=== PATIENT | female | born 1985 | race Asian ===

== ENCOUNTER 2017-03-27 11:18 | Outpatient (CLI) | payer MEDICAID, OTHER ==
[~2017-03-27] VITALS: Ht 152.4 cm; Wt 63.1 kg
[2017-03-27 11:52] LABS: ADD SCAN DIFF NO
[2017-03-27 12:00] LABS: BASOPHILS % 0.1 % (0.0-2.0); EOSINOPHILS # 0.1 10^3/ul (0.0-0.5); EOSINOPHILS % 0.6 % (0.0-7.0); HEMATOCRIT 38.9 % (37.0-47.0); HEMOGLOBIN 13.3 g/dl (12.0-16.0); LYMPHOCYTES # 1.3 10^3/ul (0.8-2.9); LYMPHOCYTES % 15.8 % (15.0-51.0); MEAN CORPUSCULAR HEMOGLOBIN 31.1 pg (29.0-33.0); MEAN CORPUSCULAR HGB CONC 34.2 g/dl (32.0-37.0); MEAN CORPUSCULAR VOLUME 91.1 fl (82.0-101.0); MEAN PLATELET VOLUME 11.6 fl (7.4-10.4); MONOCYTE # 0.7 10^3/ul (0.3-0.9); MONOCYTES % 8.8 % (0.0-11.0); NEUTROPHIL # 6.2 10^3/ul (1.6-7.5); NEUTROPHILS % 74.2 % (39.0-77.0); PLATELET COUNT 151 10^3/UL (140-415); RED BLOOD COUNT 4.27 10^6/ul (4.20-5.40); RED CELL DISTRIBUTION WIDTH 12.7 % (11.5-14.5); WHITE BLOOD COUNT 8.4 10^3/ul (4.8-10.8)
[2017-03-27 12:06] LABS: ADD UMIC YES; UR ASCORBIC ACID NEGATIVE (NEGATIVE); UR BILIRUBIN (Dip) NEGATIVE (NEGATIVE); UR BLOOD (Dip) 1+ mg/dL (NEGATIVE); UR CLARITY CLEAR (CLEAR); UR COLOR YELLOW (YELLOW); UR GLUCOSE (Dip) NEGATIVE (NEGATIVE); UR KETONES (Dip) NEGATIVE (NEGATIVE); UR LEUKOCYTE ESTERASE (Dip) 2+ Leu/ul (NEGATIVE); UR MUCUS FEW /HPF (NONE SEEN); UR NITRITE (Dip) NEGATIVE (NEGATIVE); UR RBC 11 /HPF (0-5); UR SPECIFIC GRAVITY (Dip) 1.012 (1.003-1.030); UR TOTAL PROTEIN (Dip) NEGATIVE (NEGATIVE); UR UROBILINOGEN (Dip) NEGATIVE (NEGATIVE)
[2017-03-27 12:09] LABS: INR 0.86; PROTIME 11.7 Sec (12.2-14.2); PT RATIO 0.9
[2017-03-27 12:11] LABS: ALBUMIN 3.3 g/dl (3.3-4.9); ALBUMIN/GLOBULIN RATIO 1.03; BILIRUBIN,INDIRECT 0.3 mg/dl (0-1.1); BILIRUBIN,TOTAL 0.3 mg/dl (0.2-1.3); CALCIUM 9.3 mg/dl (8.4-10.2); CREATININE 0.59 mg/dl (0.44-1.00); POTASSIUM 3.6 mmol/L (3.5-5.1); TOTAL PROTEIN 6.5 g/dl (6.1-8.1); URIC ACID 5.1 mg/dl (3.1-7.9)
[2017-03-27 12:35] VITALS: BP 139/87; PULSE 51; RESP 24; Ht 152.4 cm; Wt 63.1 kg
[2017-03-27 12:36] LABS: PARTIAL THROMBOPLASTIN TIME 29.3 Sec (25.0-35.0)
--- NOTE | 2017-03-27 12:41 | RADRPT ---
PROCEDURE: US OB biophysical profile. CLINICAL INDICATION: evaluation, hypertension TECHNIQUE: Multiple sonographic images of the pelvis were obtained. The images were reviewed on a PACS workstation. COMPARISON: No prior studies are available for comparison. FINDINGS: There is a single viable intrauterine gestation. Cardiac activity is present with 115 beats per min kenaitze. There is a vertex presentation. The placenta is posterior. There is no evidence of placental abruption. There is a normal amount of amniotic fluid with an DIYA = 11.4 cm. Biophysical profile: movement 2/2 tone 2/2. breathing 2/2 DIYA 2/2 Total 04/17 RPTAT: AA . IMPRESSION: Normal biophysical profile. Physician Bhupinder Date Time Electronically viewed and signed by Physician Bhupinder on 03/27/2017 12:41 /
[2017-03-27] MEDS ORDERED: CALC600T11 PO (14:34)
[2017-03-27] MEDS ORDERED: FOLI0.4T2 PO (14:34)
[2017-03-27] MEDS ORDERED: PRENAT PO (14:34)
--- NOTE | 2017-03-27 16:03 | TRIAGE ---
OB Triage Datetime Report Generated by CPN: 03/27/2017 16:03 Datetime: 03/27/2017 14:27 Labor Evaluation Frequency: 3-7 Monitor Mode: External Duration (sec)2399: 50-120 Quality: Mild Pattern: Normal: <= 5 Contractions in 10 Minutes Resting Tone [place]: Relaxed Heart Rate FHR Baseline Rate: 125 Monitor Mode: External US Variability: Moderate 6-25 bpm Accelerations: 15X15 Decelerations: None Category: Category I Vaginal Exam Dilatation (cms): 0.0 Effacement (%): 0 Station: -4 Exam By: dr. delshad Cervix, Consistency: Moderate Datetime: 03/27/2017 13:37 Labor Evaluation Frequency: 3-4 Monitor Mode: External Duration (sec)2399: 50-80 Quality: Strong Pattern: Normal: <= 5 Contractions in 10 Minutes Resting Tone [place]: Relaxed Heart Rate FHR Baseline Rate: 130 Monitor Mode: External US Variability: Moderate 6-25 bpm Accelerations: 15X15 Decelerations: None Category: Category I Datetime: 03/27/2017 12:26 Labor Evaluation Frequency: irreg Monitor Mode: External Duration (sec)2399: 50-70 Quality: Mild Pattern: Normal: <= 5 Contractions in 10 Minutes Resting Tone [place]: Relaxed Heart Rate FHR Baseline Rate: 135 Monitor Mode: External US Variability: Moderate 6-25 bpm Accelerations: 15X15 Decelerations: None Category: Category I Datetime: 03/27/2017 11:40 Labor Evaluation Frequency: 3-7 Monitor Mode: External Duration (sec)2399: 50-90 Quality: Moderate Pattern: Normal: <= 5 Contractions in 10 Minutes Resting Tone [place]: Relaxed Heart Rate FHR Baseline Rate: 135 Monitor Mode: External US Variability: Moderate 6-25 bpm Accelerations: 15X15 Decelerations: None Category: Category I Datetime: 03/27/2017 11:33 Time of Arrival: 03/27/2017 11:06 EGA: 37.4 Arrived By: Ambulatory Arrived From: Home Chief Complaint: R/O PIH CAME WITH ORDERS NST /BPP Movement: Present Contractions: Denies/Absent Rupture of Membranes: Denies Vaginal Bleeding: None Vaginal Discharge: Denies Recent Sexual Intercouse: Denies Abdominal Trauma: Not Applicable Time Provider Notified: 03/27/2017 12:12 Provider Notified: dr. pineda Initial Plan: NST BPP, PIH PANEL Datetime: 03/27/2017 11:30 Assessment Type: Triage Maternal Assessment Level of Consciousness: Fully Conscious DTR's/Clonus: DTRs 2+; No Clonus Headache: Denies Blurred Vision: No Respiratory Effort: Unlabored; Regular Rhythm; Equal Expansion Breath Sounds, Left: Clear and Equal Breath Sounds, Right: Clear and Equal Nausea/Vomiting: Denies RUQ Epigastric Pain: Denies Lower Extremities Edema: Bilateral Lower Extremities Degree: Pitting Upper Extremities Edema: None Degree: None Facial Edema: None Fall Risk Assessment History of Falling: (0) No Secondary Diagnosis: (0) No Ambulatory Aid: (0) Bedrest/Nurse Assist IV Therapy: (0) No Gait: (0) Normal/Bedrest/Immobile Mental Status: (0) Oriented to Own Ability Fall Score: 0 Fall Risk Score Definition: No Risk: No action required Datetime: 03/27/2017 11:15 Stage of : OB Triage Assessment Type: Triage Maternal Assessment Level of Consciousness: Fully Conscious DTR's/Clonus: DTRs 2+; No Clonus Headache: Denies Blurred Vision: No Respiratory Effort: Unlabored; Regular Rhythm; Equal Expansion Breath Sounds, Left: Clear and Equal Breath Sounds, Right: Clear and Equal Nausea/Vomiting: Denies RUQ Epigastric Pain: Denies Lower Extremities Edema: None Degree: None Upper Extremities Edema: None Degree: None Facial Edema: None Temperature Route: Axillary Fall Risk Assessment History of Falling: (0) No Secondary Diagnosis: (0) No Ambulatory Aid: (0) Bedrest/Nurse Assist IV Therapy: (0) No Gait: (0) Normal/Bedrest/Immobile Mental Status: (0) Oriented to Own Ability Fall Score: 0 Fall Risk Score Definition: No Risk: No action required Pain Assessment Pain Scale: 0 Pain Presence: None/Denies Pain Type: N/A
== END 2017-03-27 14:30 | disposition home or self-care (01) ==
LOC: OBT 11:18 → L-D 11:19 → OBT 14:30
PROVIDERS: ATTEND Obstetrics & Gynecology
DX: O16.3 Unspecified maternal hypertension, third trimester (principal); Z3A.37 37 weeks gestation of pregnancy
CPT/HCPCS: 76818; 80053; 81001; 84560; 85025; 85384; 85610; 85730; Z7500; G0463

== ENCOUNTER 2017-04-18 14:45 | Inpatient (IN) | payer OTHER ==
[~2017-04-18] VITALS: Ht 152.4 cm; Wt 64.3 kg
[~2017-04-18 14:45] MED LIST: CALC600T11 PO; FOLI0.4T2 PO; PRENAT PO
[2017-04-18] MEDS ORDERED: FER325 PO (15:18)
[2017-04-18 15:19] VITALS: BP 129/71; PULSE 61; RESP 18; Ht 152.4 cm; Wt 64.3 kg
--- NOTE | 2017-04-18 16:14 | RADRPT ---
PROCEDURE: US OB. CLINICAL INDICATION: Post dates TECHNIQUE: Multiple sonographic images of the pelvis were obtained. Transabdominal imaging only w as performed. The images were reviewed on a PACS workstation. COMPARISON: No prior studies are available for comparison. FINDINGS: Single intrauterine gestation. Cephalic presentation. heart rate is 156 bpm. Measurements were made in order to determine age. The results are as follows: BPD = 9.46 cm HC = 32.60 cm AC = 35.10 cm FL = 7.31 cm Gestational age is 38 weeks 0 days and SONYA is 05/02/2017 by ultrasound criteria. EFW = 3473 g +/- 521 g (26 %). The placenta is fundal. There is no evidence for an abruption or placenta previa. IMPRESSION: 1. Single live intrauterine gestation of approximately 38 weeks 0 days by ultrasound criteria. RPTAT: EE .Umberto Haskins MD, MD Date Time Electronically viewed and signed by .Umberto Haskins MD, MD on 04/18/2017 16:14 .R/
--- NOTE | 2017-04-18 16:16 | RADRPT ---
PROCEDURE: OB ultrasound for biophysical profile CLINICAL INDICATION: Post dates. Biophysical profile. . TECHNIQUE: Multiple sonographic images of the pelvis were obtained. Transabdominal view of the gr avid uterus are available for review. The images were reviewed on a PACS workstation. COMPARISON: None FINDINGS: breathing movement = 2/2 tone = 2/2 motion = 2/2 DIYA = 2/2 Single intrauterine gestation is identified in cephalic position. heart rate is 161 bpm. Plac enta is fundal without evidence for abruption or previa. DIYA measures 3.2 cm, below normal limits. Maximum vertical pocket of fluid measures 2.3 cm. IMPRESSION: 1. Single live intrauterine gestation. 2. Biophysical profile = 04/17. 3. Oligohydramnios is noted - DIYA is 3.2 cm. Maximum vertical pocket of fluid measures 2.3 cm. RPTAT: EE .Umberto Haskins MD, MD Date Time Electronically viewed and signed by .Umberto Haskins MD, on 04/18/2017 16:16 .R/
--- NOTE | 2017-04-18 16:44 | TRIAGE ---
OB Triage Datetime Report Generated by CPN: 04/18/2017 16:44 Datetime: 04/18/2017 15:13 Assessment Type: Triage Maternal Assessment Level of Consciousness: Fully Conscious DTR's/Clonus: DTRs 2+; No Clonus Headache: Denies Blurred Vision: No Respiratory Effort: Unlabored; Regular Rhythm; Equal Expansion Breath Sounds, Left: Clear and Equal Breath Sounds, Right: Clear and Equal Nausea/Vomiting: Denies RUQ Epigastric Pain: Denies Lower Extremities Edema: None Degree: None Upper Extremities Edema: None Degree: None Facial Edema: None Fall Risk Assessment History of Falling: (0) No Secondary Diagnosis: (0) No Ambulatory Aid: (0) Bedrest/Nurse Assist IV Therapy: (0) No Gait: (0) Normal/Bedrest/Immobile Mental Status: (0) Oriented to Own Ability Fall Score: 0 Fall Risk Score Definition: No Risk: No action required Datetime: 04/18/2017 15:12 Time of Arrival: 04/18/2017 14:37 EGA: 41.0 Arrived By: Ambulatory Arrived From: Office Chief Complaint: PT HERE FOR NST/BPP/EFW FOR POST DATES Movement: Present Contractions: Denies/Absent Rupture of Membranes: Denies Vaginal Bleeding: None Vaginal Discharge: Denies Recent Sexual Intercouse: Denies Abdominal Trauma: Not Applicable Patient Complaints: None Time Provider Notified: 04/18/2017 16:30 Provider Notified: NIELS Initial Plan: NST/BPP/EFW Datetime: 04/18/2017 15:01 Labor Evaluation Monitor Mode: External Heart Rate Monitor Mode: External US Datetime: 03/27/2017 11:33 EGA: 37.6 Datetime: 03/27/2017 11:30 Fall Score: 0 Fall Risk Score Definition: No Risk: No action required Datetime: 03/27/2017 11:15 Fall Score: 0 Fall Risk Score Definition: No Risk: No action required
[2017-04-18] MEDS ORDERED: LIDOCAINE 1% (MPF) 30 ML INJ INJ PRN (17:00)
[2017-04-18] MEDS ORDERED: OXYTOCIN 30 UNITS/LR 500 ML IV PRN (17:00)
[2017-04-18] MEDS ORDERED: CARBOPROST 250 MCG INJ IM PRN (17:00)
[2017-04-18] MEDS ORDERED: MISOPROSTOL 200 MCG TAB PR PRN (17:00)
[2017-04-18] MEDS ORDERED: METHYLERGONOVINE 0.2 MG INJ IM PRN (17:00)
[2017-04-18] MEDS ORDERED: LACTATED RINGER'S 1,000 ML IV PRN (17:00)
[2017-04-18] MEDS: LACTATED RINGER'S 1,000 ML IV SCH ×2 (17:25→22:57)
[2017-04-18] MEDS ORDERED: IBUPROFEN 600 MG TAB PO PRN (17:30)
[2017-04-18] MEDS ORDERED: MINERAL OIL LIGHT 10 ML VIAL TOP ONE (17:30)
[2017-04-18] MEDS ORDERED: DINOPROSTONE 10 MG VAG SUPP VAG ONE (17:30)
[2017-04-18 17:45] LABS: BASOPHILS % 0.1 % (0.0-2.0); EOSINOPHILS # 0.1 10^3/ul (0.0-0.5); EOSINOPHILS % 0.8 % (0.0-7.0); HEMATOCRIT 40.2 % (37.0-47.0); HEMOGLOBIN 13.6 g/dl (12.0-16.0); LYMPHOCYTES # 1.8 10^3/ul (0.8-2.9); LYMPHOCYTES % 22.3 % (15.0-51.0); MEAN CORPUSCULAR HEMOGLOBIN 30.4 pg (29.0-33.0); MEAN CORPUSCULAR HGB CONC 33.8 g/dl (32.0-37.0); MEAN CORPUSCULAR VOLUME 89.9 fl (82.0-101.0); MONOCYTE # 0.8 10^3/ul (0.3-0.9); MONOCYTES % 10.2 % (0.0-11.0); NEUTROPHIL # 5.2 10^3/ul (1.6-7.5); NEUTROPHILS % 66.2 % (39.0-77.0); PLATELET COUNT 149 10^3/UL (140-415); RED BLOOD COUNT 4.47 10^6/ul (4.20-5.40); RED CELL DISTRIBUTION WIDTH 12.9 % (11.5-14.5); WHITE BLOOD COUNT 7.9 10^3/ul (4.8-10.8)
[2017-04-18 18:06] LABS: INR 0.86; PROTIME 11.7 Sec (12.2-14.2); PT RATIO 0.9
[2017-04-18 18:07] LABS: PARTIAL THROMBOPLASTIN TIME 28.5 Sec (25.0-35.0)
[2017-04-18 18:20] LABS: ALBUMIN/GLOBULIN RATIO 1.09
[2017-04-18 18:37] LABS: ADD UMIC YES; UR ASCORBIC ACID NEGATIVE (NEGATIVE); UR BILIRUBIN (Dip) NEGATIVE (NEGATIVE); UR BLOOD (Dip) 3+ mg/dL (NEGATIVE); UR CLARITY CLEAR (CLEAR); UR COLOR YELLOW (YELLOW); UR GLUCOSE (Dip) NEGATIVE (NEGATIVE); UR KETONES (Dip) NEGATIVE (NEGATIVE); UR LEUKOCYTE ESTERASE (Dip) 2+ Leu/ul (NEGATIVE); UR NITRITE (Dip) NEGATIVE (NEGATIVE); UR RBC 2 /HPF (0-5); UR SPECIFIC GRAVITY (Dip) 1.006 (1.003-1.030); UR SQUAMOUS EPITHELIAL CELL FEW /HPF (FEW); UR TOTAL PROTEIN (Dip) NEGATIVE (NEGATIVE); UR UROBILINOGEN (Dip) NEGATIVE (NEGATIVE)
[2017-04-18 18:40] LABS: ALBUMIN 3.4 g/dl (3.3-4.9); BILIRUBIN,INDIRECT 0.1 mg/dl (0-1.1); BILIRUBIN,TOTAL 0.1 mg/dl (0.2-1.3); TOTAL PROTEIN 6.5 g/dl (6.1-8.1); URIC ACID 6.9 mg/dl (3.1-7.9)
[2017-04-18 18:43] LABS: CREATININE 0.68 mg/dl (0.44-1.00); POTASSIUM 4.1 mmol/L (3.5-5.1)
[2017-04-18 18:44] LABS: ALBUMIN 3.4 g/dl (3.3-4.9); BILIRUBIN,INDIRECT 0.1 mg/dl (0-1.1); BILIRUBIN,TOTAL 0.1 mg/dl (0.2-1.3); TOTAL PROTEIN 6.5 g/dl (6.1-8.1)
--- NOTE | 2017-04-19 00:42 | HP ---
Date/Time of Note Date/Time of Note DATE: 04/19/17 TIME: 00:37 OB - History Hx of Present Free Text/Dictation 32years old with IUP at 41 weeks, post date and oligohydramnios and care with Dr. brito was started induction by Dr. Singre. Her course was non complicated. DIYA: 3.1 cm : 1 Para: 0 Spontaneous : 0 Therapeutic : 0 Care: Good Care Medical Complications: None Other Concerns: Post date, olighydramnios. BPP: 02/15 Past Family/Social History * Past Medical, Surgical, Family and Obstetric Histories reviewed from chart. OB Admission Exam Vital Signs Vital Signs Vital Signs Date Time Temp Pulse Resp B/P Pulse Ox O2 Delivery O2 Flow Rate FiO2 04/18/17 15:19 98.3 61 18 129/71 94 Room Air Physical Exam HEENT: WNL Heart: Rhythm Normal Lungs: Clear Abdomen: WNL Extremities: Normal Cervical Dilatation: None Effacement: 0% Station: -2 Membranes: Intact Heart Rate: 120's Accelerations: Accelerations Present Decelerations: No Decelerations Varibility: Moderate Contractions on Admission: >10 Minutes Apart Intensity: Mild Last 72 hours Lab Results CBC & BMP 04/18/17 17:20 Liver Function Test 04/18/17 17:20 Alanine Aminotransferase (ALT/SGPT) 28 Albumin 3.4 Alkaline Phosphatase 330 H Aspartate Amino Transf (AST/SGOT) 23 Direct Bilirubin 0.00 Total Protein 6.5 OB Assessment/Plan Other Assessment: IUP at 41 weeks Post date Oligohydramnios Non favourable cervix Started on cervidil FHT: cat 1 remove cervidil after 12 hours Re evaluate the cervix, if favourable start pitocin Anticipate ROS MALDONADO MD Apr 19, 2017 00:41
[2017-04-19] MEDS ORDERED: OXYTOCIN 30 UNITS/LR 500 ML IV SCH ×2 (01:30→07:00)
[2017-04-19] MEDS: LACTATED RINGER'S 1,000 ML IV SCH ×3 (02:06→22:55)
[2017-04-19] MEDS ORDERED: BUTORPHANOL 2 MG INJ ONE (05:00)
[2017-04-19] MEDS ORDERED: BUTORPHANOL 2 MG INJ IV PRN (05:00)
[2017-04-19] MEDS ORDERED: ONDANSETRON 4 MG INJ IV PRN ×2 (06:00→10:30)
[2017-04-19] MEDS ORDERED: EPHEDrine SULFATE 50 MG/5 ML SYG IV PRN (06:00)
[2017-04-19] MEDS ORDERED: NALOXONE (0.4 MG/ML) INJ IV PRN ×2 (06:00→10:30)
[2017-04-19] MEDS ORDERED: FENTAnyl 2MCG/ML-ROPIV 0.2% 100 ML BAG EPI SCH (06:00)
[2017-04-19] MEDS ORDERED: DIPHENHYDRAMINE 50 MG INJ IV PRN ×2 (06:00→10:30)
[2017-04-19] MEDS ORDERED: TERBUTALINE 1 MG/ML INJ SC ONE (06:30)
[2017-04-19] MEDS ORDERED: TERBUTALINE 1 ML ONE (06:33)
[2017-04-19] MEDS ORDERED: CEFAZOLIN 2 GM/50 ML (PMX) 50 ML IVPB ONE (06:46)
--- NOTE | 2017-04-19 06:46 | PN ---
Date/Time of Note Date/Time of Note DATE: 04/19/17 TIME: 06:45 OB Subjective Subjective Subjective Patient noted to have deceleration with contractions, tracing reviewed, more variable and early, good variability noted AROM done. IUPC placed Start amnioinfusion Continue watch closely ROS MALDONADO MD Apr 19, 2017 06:46
[2017-04-19] MEDS ORDERED: morphine SULFATE/PF (10 MG/10 ML) INJ ONE (06:55)
[2017-04-19] MEDS ORDERED: EPHEDrine SULFATE 50 MG/5 ML SYG ONE (06:55)
[2017-04-19] MEDS ORDERED: OXYTOCIN 30 UNITS/LR 500 ML IV ONE (06:55)
[2017-04-19] MEDS ORDERED: CEFAZOLIN 2 GM/50 ML (PMX) 50 ML IV SCH (07:00)
[2017-04-19] MEDS ORDERED: OXYTOCIN 30 UNITS/LR 500 ML IV PRN ×2 (07:00→12:00)
[2017-04-19] MEDS ORDERED: CARBOPROST 250 MCG INJ IM PRN ×2 (07:00→12:00)
[2017-04-19] MEDS ORDERED: MISOPROSTOL 200 MCG TAB PR PRN ×2 (07:00→12:00)
[2017-04-19] MEDS ORDERED: METHYLERGONOVINE 0.2 MG INJ IM PRN ×2 (07:00→12:00)
[2017-04-19] MEDS ORDERED: ONDANSETRON 4 MG INJ ONE (07:04)
[2017-04-19] MEDS ORDERED: OXYTOCIN 10 UNIT INJ ONE ×2 (07:04→07:21)
[2017-04-19] MEDS ORDERED: METOCLOPRAMIDE 10 MG INJ ONE (07:04)
[2017-04-19] MEDS ORDERED: PHENYLephrine (100 MCG/ML) 5ML SYG ONE (07:14)
[2017-04-19 07:40] LABS: CBA Base Excess -4.9 mmol/L; CBA Oxygen Sat 23.8 mmHG; Cord Blood Arterial pO2 14.1 mmHG (15.0-45.0); Fraction OxyHgb Cord Arterial 23.2 %; MODE ROOM AIR; MetHgb Cord Arterial 2.5 %; Sample Type CBA
[2017-04-19 07:40] LABS: MODE ROOM AIR; MetHgb Venous 1.5 %; Sample Type CBV; Venous Fraction OxyHgb 50.3 %; Venous Total Hemglobin 16.9 g/dl
--- NOTE | 2017-04-19 07:47 | PN ---
Date/Time of Note Date/Time of Note DATE: 04/19/17 TIME: 07:45 OB Subjective Subjective Subjective Patient noted to have recurrent deceleration consistent with intolerance to labor status post terbutaline. heart rate is still low Discussed with patient regarding section Risk and benefit discussed including risk of infection, bleeding damage to surrounding structures including bowel and bladder and risk of blood transfusion patient verbalized understanding Patient was taken to the back to OR Anesthesia notified Received 1 g of Ancef on the way to OR ROS MALDONADO MD Apr 19, 2017 07:47
--- NOTE | 2017-04-19 07:51 | OPR ---
Operative Report Planned Procedure Free Text/Dictation April 19, 2017 Procedure date Apr 19, 2017 Performed by: ROS MALDONADO MD Assisting provider: SUKHDEEP CAMACHO MD Anesthesiologist: CATE BAUTISTA MD Pre-procedure diagnosis 1. intolerance to labor 2. Oligohydramnios Anesthesia Type: spinal Procedure Description under satisfactory [adequate spinal] anesthesia, the patient was prepped and draped and placed in a supine position, tilted to the left. Pfannenstiel incision was made, carried through the subcutaneous tissue. Bleeders brought under control with electrocautery. Fascia incised to the length of the incision. Rectus muscles from the fascia, divided midline. Peritoneum exposed, entered through a transverse incision. Exploration of abdomen revealed gravid uterus. Bladder flap was developed. Transverse incision was made in the lower segment of the uterus. Amniotic sac ruptured. 2+ meconium [] amniotic fluid noted. [ head was noted to be occiput posterior position that was grasped and was brought up to the incision and delivered through the incision while the virtual customer assistant was applying fundal pressure. ] Nasal oropharyngeal suction was performed. Cord clamp was performed. Cord gas and cord blood was obtained. The baby was handed to the team for immediate attention. The placenta was delivered manually intact. And was sent for pathology uterine cavity was cleaned with wet sponge and drainage established. Uterus closed in 2 layers using [1-0 Monocryl] in continuous fashion. First layer used for hemostasis and the second layer used for imbrication. Peritoneal cavity irrigated with warm saline reapproximated using 2-0 Monocryl sponge, needle and instrument count reported to be correct. Abdominal peritoneum closed with [2-0 Vicryl] continuously. Rectus muscle approximated with [] 2-0 Vicryl. Fascia closed with 1-0 Monocryl [], and skin closed 3-0 Monocryl in subcuticular fashion. Subcutaneous tissue was reapproximated using 2 oh plain gut estimated blood loss 600 []mL. Post-Procedure Findings: Live Baby [], Apgars [] and [], weight [], position [], [] presentation []cord. Specimen removed: Yes Complications: None Pt Condition post procedure: stable Disposition: PACU Physician Certification I, the undersigned physician, hereby certify that I have discussed the procedure described in this consent form with this patient (or the patient's legal termite control representative), including: * The risk and benefits of the procedure; * Any adverse reactions that may reasonably be expected to occur; * Any alternative efficacious methods of treatment which may be medically viable ; * The potential problems that may occur during recuperation; * Potential for blood transfusion and associated risks/benefits; and * Any research or economic interest I may have regarding this treatment. I further certify that the patient/legally responsible person was encouraged to ask question and that all questions were answered. ROS MALDONADO MD Apr 19, 2017 07:50
[2017-04-19] MEDS ORDERED: morphine 2 MG INJ IV PRN (10:30)
[2017-04-19] MEDS ORDERED: ACETAMINOPHEN 500 MG TAB PO PRN (12:00)
[2017-04-19] MEDS ORDERED: OXYCODONE/ACETAMINOPHEN (5/325) TAB PO PRN (12:00)
[2017-04-19] MEDS ORDERED: METHYLERGONOVINE 0.2 MG TAB PO PRN (12:00)
[2017-04-19] MEDS ORDERED: NA PHOSPHATE/BIPHOS 133 ML ENEMA PR PRN (12:00)
[2017-04-19] MEDS ORDERED: LANOLIN 7 GM TUBE TOP PRN (12:00)
[2017-04-19] MEDS: OXYTOCIN 30 UNITS/LR 500 ML IV SCH ×2 (14:45→18:52)
[2017-04-19 20:16] VITALS: BP 117/62; PULSE 63; RESP 18
[2017-04-19] MEDS: KETOROLAC 30 MG INJ IV PRN (20:16)
[2017-04-20 03:55] VITALS: BP 110/60; PULSE 66; RESP 20
[2017-04-20] MEDS: LACTATED RINGER'S 1,000 ML IV SCH ×2 (03:56→06:18)
[2017-04-20 08:00] VITALS: BP 129/61; PULSE 63; RESP 16
[2017-04-20] MEDS: KETOROLAC 30 MG INJ IV PRN (08:00)
[2017-04-20] MEDS: OXYCODONE/ACETAMINOPHEN (5/325) TAB PO PRN ×2 (08:50→19:50)
[2017-04-20 09:37] LABS: BASOPHILS % 0.2 % (0.0-2.0); EOSINOPHILS # 0.1 10^3/ul (0.0-0.5); EOSINOPHILS % 0.4 % (0.0-7.0); HEMATOCRIT 34.1 % (37.0-47.0); HEMOGLOBIN 11.2 g/dl (12.0-16.0); LYMPHOCYTES # 1.8 10^3/ul (0.8-2.9); LYMPHOCYTES % 12.3 % (15.0-51.0); MEAN CORPUSCULAR HEMOGLOBIN 30.4 pg (29.0-33.0); MEAN CORPUSCULAR HGB CONC 32.8 g/dl (32.0-37.0); MEAN CORPUSCULAR VOLUME 92.7 fl (82.0-101.0); MEAN PLATELET VOLUME 12.3 fl (7.4-10.4); MONOCYTES % 6.9 % (0.0-11.0); NEUTROPHIL # 11.4 10^3/ul (1.6-7.5); NEUTROPHILS % 79.8 % (39.0-77.0); PLATELET COUNT 107 10^3/UL (140-415); RED BLOOD COUNT 3.68 10^6/ul (4.20-5.40); WHITE BLOOD COUNT 14.3 10^3/ul (4.8-10.8)
--- NOTE | 2017-04-20 10:24 | PN ---
Date/Time of Note Date/Time of Note DATE: 04/20/17 TIME: 10:23 OB Subjective Subjective Subjective Post day 1 Afebrile Vital signs are stable Abdomen soft incision dry bowel sounds present ambulation encouraged KAYLEEN BOWSER MD Apr 20, 2017 10:24
[2017-04-20 16:00] VITALS: BP 129/73; PULSE 59
[2017-04-20 19:50] VITALS: BP 134/73; PULSE 62; RESP 18
[2017-04-21] MEDS: OXYCODONE/ACETAMINOPHEN (5/325) TAB PO PRN ×4 (03:17→23:53)
[2017-04-21 04:10] VITALS: BP 122/62; PULSE 56; RESP 20
[2017-04-21 08:00] VITALS: BP 134/85; PULSE 50; RESP 18
--- NOTE | 2017-04-21 12:43 | PN ---
Date/Time of Note Date/Time of Note DATE: 04/21/17 TIME: 12:42 OB Subjective Subjective Subjective Post date Afebrile VSs Abdomen soft bowel sounds present no bowel movement incision dry extremities normal ambulation encouraged fleets enema ordered KAYLEEN BOWSER MD Apr 21, 2017 12:43
[2017-04-21] MEDS ORDERED: NA PHOSPHATE/BIPHOS 133 ML ENEMA PR ONE (13:00)
[2017-04-21] MEDS: IBUPROFEN 600 MG TAB PO PRN (15:02)
[2017-04-21 16:25] VITALS: BP 127/68; PULSE 55; RESP 18
[2017-04-21 20:00] VITALS: BP 143/87; PULSE 54; RESP 18
[2017-04-21 21:15] VITALS: BP 150/79; RESP 18
[2017-04-21 21:17] VITALS: BP 150/79; PULSE 54; RESP 18
[2017-04-22] VITALS: BP 151/77; PULSE 49; RESP 18
[2017-04-22 00:50] VITALS: BP 160/79; PULSE 49; RESP 20
[2017-04-22 04:55] VITALS: BP 139/82; PULSE 53; RESP 20
[2017-04-22] MEDS: IBUPROFEN 600 MG TAB PO PRN ×2 (04:59→16:26)
[2017-04-22 08:15] VITALS: BP 140/73; PULSE 61; RESP 16
[2017-04-22] MEDS ORDERED: DIPHTH/TET/ACEL PERTUSS (ADULT) 0.5 ML VIAL IM* ONE (09:00)
[2017-04-22] MEDS: OXYCODONE/ACETAMINOPHEN (5/325) TAB PO PRN ×2 (11:44→16:26)
--- NOTE | 2017-04-22 16:28 | DS ---
Date/Time of Note Date/Time of Note DATE: 04/22/17 TIME: 16:26 Discharge Summary Admission/Discharge Info Admit Date/Time Apr 18, 2017 at 16:30 Discharge Date/Time April 22, 2017 at 1620 Discharge Diagnosis Post day 3 Patient Condition: Good Procedures Hx of Present Illness Term date 3 post Hospital Course Satisfactory recovery uneventful Home Meds Reported Medications Ferrous Sulfate* (Ferrous Sulfate*) 325 Mg Tabec, 325 MG PO DAILY, TAB 04/18/17 Calcium Carbonate* (Calcium Carbonate*) 600 MG Ca Tab, 600 MG PO, TAB 03/27/17 Folic Acid* (Folic Acid*) 0.4 Mg Tablet, 1 MG PO DAILY, TAB 03/27/17 Multivit/Min/Fol Ac/Iron/Pren* ( S*) 1 Tab Tab, 1 TAB PO DAILY, TAB 03/27/17 Follow-up Plan instructions given recommended patient to make appointment to be seen in the office in 1 week Primary Care Provider [facility] Time spent on discharge: < 30 minutes KAYLEEN BOWSER MD Apr 22, 2017 16:28
--- NOTE | 2017-04-22 16:31 | QN ---
Documentation Comment Under sterile condition signed consent for circumcision, Circumcision performed using Gomco 1.1 no bleeding noted post circumcision penis covered with Vaseline gauze, care of the wound explained to the father. KAYLEEN BOWSER MD Apr 22, 2017 16:31
== END 2017-04-22 18:25 | disposition home or self-care (01) | DRG 765 ==
LOC: OBT 14:45 → L-D 14:46 → OBT 16:30 → L-D 16:30 → PP1 04-19 11:13
PROVIDERS: ADMIT Obstetrics & Gynecology; ATTEND Obstetrics & Gynecology
PROC: 10D00Z1 Extraction of Products of Conception, Low, Open Approach (ICD-10-PCS; principal; 2017-04-19 07:00)
DX: O48.0 Post-term pregnancy (principal); O41.03X0 Oligohydramnios, third trimester, not applicable or unspecified; Z3A.41 41 weeks gestation of pregnancy; Z37.0 Single live birth
CPT/HCPCS: 36415; 36600; 76815; 76818; 80053; 80076; 81001; 82803; 84560; 85025; 85384; 85610; 85730; 86592; 86885; 86900; 86901; 87340; 88307; 90715; 99464; G0463; J0595; J0690; J1885; J2274; J2370; J2405; J2590; J2765; J3010; J3105; J7120

== ENCOUNTER 2019-03-01 05:21 | Inpatient (IN) | payer MEDICAID ==
[~2019-03-01] VITALS: Ht 152.4 cm; Wt 66.5 kg
[~2019-03-01 05:21] MED LIST changes: -CALC600T11 PO; +CALC600T24 PO; +FER325 PO
[2019-03-01 05:34] VITALS: Ht 152.4 cm; Wt 66.5 kg
[2019-03-01] MEDS ORDERED: OXYTOCIN 30 UNITS/LR 500 ML IV PRN ×2 (06:00→09:30)
[2019-03-01] MEDS ORDERED: METHYLERGONOVINE 0.2 MG INJ IM PRN ×2 (06:00→09:30)
[2019-03-01] MEDS ORDERED: CARBOPROST 250 MCG INJ IM PRN ×2 (06:00→09:30)
[2019-03-01] MEDS ORDERED: MISOPROSTOL 200 MCG TAB PR PRN ×2 (06:00→09:30)
[2019-03-01] MEDS ORDERED: LACTATED RINGER'S 1,000 ML IV ONE ×2 (06:00→07:33)
[2019-03-01] MEDS ORDERED: CEFAZOLIN 2 GM/50 ML (PMX) 50 ML IVPB SCH ×2 (06:00→09:30)
[2019-03-01] MEDS: LACTATED RINGER'S 1,000 ML IV SCH ×2 (06:21→07:33)
--- NOTE | 2019-03-01 07:33 | PREAC ---
Date/Time of Note Date/Time of Note DATE: 03/01/19 TIME: 07:30 Anesthesia Eval and Record Evaluation Time Pre-Procedure Interview DATE: 03/01/19 TIME: 07:01 Age 33 Sex female NPO: 8 hrs Preoperative diagnosis iup @ 39 wks, , contractions, prev. c/s Planned procedure repeat c/s Past Medical History Past Medical History: Includes : : (1), Para: (0), Gestational age: (39 wks.) Surgery & Anesthesia Issues No known issue Meds Anticoagulation: No Beta Sabina within 24 hr: No Reason Beta Sabina not given: Pt. not on B-Sabina Reported Medications Ferrous Sulfate* (Ferrous Sulfate*) 325 Mg Tabec, 325 MG PO DAILY, TAB 04/18/17 Calcium Carbonate* (Calcium Carbonate*) 600 MG Ca Tab, 600 MG PO, TAB 03/27/17 Folic Acid* (Folic Acid*) 0.4 Mg Tablet, 1 MG PO DAILY, TAB 03/27/17 Multivit/Min/Fol Ac/Iron/Pren* ( S*) 1 Tab Tab, 1 TAB PO DAILY, TAB 03/27/17 Current Medications Lactated Ringer's 1,000 ml @ 125 mls/hr Q8H IV Last administered on 03/01/19at 06:21; Admin Dose 125 MLS/HR; Start 03/01/19 at 06:00 Cefazolin Sodium/ Dextrose 50 ml @ 100 mls/hr ONCE IVPB ; Start 03/01/19 at 06:00 Oxytocin/Lactated Ringer's 500 ml @ 0 mls/hr ONCE PRN IV .VAGINAL BLEEDING; Start 03/01/19 at 06:00 Methylergonovine Maleate (Methergine) 0.2 mg ONCE PRN IM .VAGINAL BLEEDING; Start 03/01/19 at 06:00 Carboprost Tromethamine (Hemabate) 250 mcg ONCE PRN IM .VAGINAL BLEEDING; Start 03/01/19 at 06:00 Misoprostol (Cytotec) 1,000 mcg ONCE PRN SD .VAGINAL BLEEDING; Start 03/01/19 at 06:00 Meds reviewed: Yes Allergies Coded Allergies: No Known Allergy (Unverified , 03/27/17) Allergies Reviewed: Yes Labs/Studies Labs Reviewed: Reviewed by anesthesiologist Result Diagram: 03/01/19 06 Laboratory Tests 03/01/19 06:05 test: Positive Studies: ECG (n/a), CXR (n/a) Pre-procedure Exam Airway: Adequate mouth opening, Adequate thyromental dist Mallampati: Mallampati II Teeth: Normal Lung: Normal Heart: Normal ASA Physical Status ASA physical status: 2 Emergency: E Planned Anesthetic General/MAC: MAC Neuraxial: Spinal Planned Pain Management Sub-arachniod narcotics, Parenteral pain med, Local by surgeon Pre-operative Attestations Prior to commencing anesthesia and surgery, the patient was re-evaluated, there was verification of: *The patient's identity *The results of appropriate recent lab work and preoperative vital signs *The above evaluation not changing prior to induction *Anesthetic plan, risk benefits, alternative and complications discussed with pa tient/family; questions answered; patient/family understands, accepts and wishes to proceed. Switchboard Wire Worker Helper used YOLIS AHUJA MD Mar 01, 2019 07:33
[2019-03-01] MEDS ORDERED: ZOLPIDEM 5 MG TAB PO PRN (08:00)
[2019-03-01] MEDS ORDERED: NALBUPHINE HCL (10 MG/1 ML) INJ IV PRN (08:00)
[2019-03-01] MEDS ORDERED: MEPERIDINE 25 MG INJ IV PRN (08:00)
[2019-03-01] MEDS ORDERED: ONDANSETRON 4 MG INJ IV PRN (08:00)
[2019-03-01] MEDS ORDERED: MIDAZOLAM 1 MG/ML 2 ML INJ IV PRN (08:00)
[2019-03-01] MEDS ORDERED: DIPHENHYDRAMINE 50 MG INJ IV PRN ×2 (08:00)
[2019-03-01] MEDS ORDERED: HYDROmorphONE 0.5 MG/0.5 ML SYG IV PRN ×2 (08:00)
[2019-03-01] MEDS ORDERED: NALOXONE (0.4 MG/ML) INJ IV PRN (08:00)
[2019-03-01] MEDS ORDERED: morphine SULFATE/PF (10 MG/10 ML) INJ ONE (08:13)
[2019-03-01] MEDS ORDERED: METOCLOPRAMIDE 10 MG INJ ONE (08:13)
[2019-03-01] MEDS ORDERED: ONDANSETRON 4 MG INJ ONE (08:25)
--- NOTE | 2019-03-01 08:52 | PREOPHP ---
DATE OF ADMISSION: 03/01/2019 Stephen Arreaga is a 33-year-old 2, para 1, EDC 03/04/2019 intrauterine at 39 weeks gesta tional age, admitted today for elective repeat delivery. She reports of having contractions every 5 to 10 minutes. She denies any vaginal bleeding or discharge. Her care took place at the [facility] with Dr. Singer. PAST MEDICAL HISTORY: None. MEDICATIONS: vitamins. PAST SURGICAL HISTORY: x1 previous section. OBSTETRIC HISTORY: x1 previous section. GYNECOLOGIC HISTORY: 11, regular 3 to 4 days. Denies any sexually transmitted infections. Sexually active with 1 partner. SOCIAL HISTORY: Denies any smoking, drugs or alcohol. FAMILY HISTORY: None. REVIEW OF SYSTEMS: All within normal except history of present illness. PHYSICAL EXAMINATION: HEENT: Within normal. LUNGS: CTA bilateral. CARDIOVASCULAR: S1, S2, regular rhythm. ABDOMEN: Gravid, nontender. Negative CVA bilateral. EXTREMITIES: Negative. No calf tenderness. PELVIC: Vaginal exam 2 cm dilated, 50% effaced, -2 station. heart tracing category 1. [place] r egular contractions. ASSESSMENT: Intrauterine at 39 weeks gestational age in labor, previous x1, luigi res elective repeat delivery, declines vaginal after . PLAN: Consent for repeat delivery. Risks, benefits and alternatives explained. All questi ons were answered. Dictated By: JESUS TAPIA/KELSIE Conf#: [id number] DID#: [id number]
[2019-03-01] MEDS ORDERED: OXYTOCIN 10 UNIT INJ ONE (08:53)
[2019-03-01] MEDS ORDERED: MIDAZOLAM 1 MG/ML 2 ML INJ ONE (08:54)
[2019-03-01] MEDS ORDERED: OXYTOCIN 30 UNITS/LR 500 ML IV SCH (09:15)
--- NOTE | 2019-03-01 09:15 | OPPN ---
Date/Time of Note Date/Time of Note DATE: 03/01/19 TIME: 09:13 Operative Report Planned Procedure Procedure date Mar 01, 2019 Procedure(s) repeat low transverse CD Performed by see signature line Notching Machine Operator: AQUILES BROTHERS MD 2nd Notching Machine Operator none Pre-procedure diagnosis Intrauterine at 39 weeks gestational age in labor, previous x1, desires elective repeat delivery, declines vaginal after . [id number] Anesthesia Type: [id number] spinal Post-Procedure Post-procedure diagnosis same Findings a viable female 9/9 weight 6lb 15oz. normal uterus tubes and ovaries Estimated Blood Loss: 500 - 600 mls (500) Specimen(s) none Grafts/Implant(s) none Complication(s) none JESUS ARMENTA MD Mar 01, 2019 09:15
[2019-03-01] MEDS ORDERED: NACL 0.9% 3 ML SYG IV SCH (09:30)
--- NOTE | 2019-03-01 10:16 | PAC ---
Date/Time of Note Date/Time of Note DATE: 03/01/19 TIME: 10:16 Post-Anesthesia Notes Post-Anesthesia Note Activity: WNL Respiratory function: WNL Cardiovascular function: WNL Mental status: Baseline Pain reasonably controlled: Yes Hydration appropriate: Yes Nausea/Vomiting absent: Yes YOLIS AHUJA MD Mar 01, 2019 10:16
[2019-03-01] MEDS: KETOROLAC 30 MG INJ IV PRN (10:41)
--- NOTE | 2019-03-01 11:29 | OPR ---
DATE OF OPERATION: 03/01/2019 PREOPERATIVE DIAGNOSIS: Intrauterine at 39 weeks gestational age, in labor, previous C-sec tion x1, desires elective repeat delivery, declined vaginal after . POSTOPERATIVE DIAGNOSES: Intrauterine at 39 weeks gestational age in labor, previous C-sec tion x1, desires elective repeat delivery, declined vaginal after . OPERATION PERFORMED: Repeat low transverse delivery via Pfannenstiel incision. SURGEON: Arnaud Merchant MD CHIEF WHARFINGER: Socrates Luz MD ANESTHESIA: Spinal. COMPLICATIONS: None. ESTIMATED BLOOD LOSS: 500 mL. FINDINGS: A viable female, 9 and 9 respectively at 1 and 5 minutes, weight 6 pounds 15 ounces. Normal uterus, tubes and ovaries. DESCRIPTION OF PROCEDURE: After explaining the risks, benefits and alternatives, the patient and con sent signed in chart, the patient was taken to the operating room where spinal anesthesia was found t o be adequate. She was then prepared and draped in normal sterile fashion in dorsal supine position with a leftward tilt. A Pfannenstiel skin incision was then made with a scalpel and carried to under lying fascia. The fascia was incised in midline, incision was extended laterally with Freitas scissors. The superior aspect of the fascial incision was grasped with curved clamps, elevated and the underl eusebio rectus muscles dissected off bluntly. Attention was then turned to the inferior aspect of incis ion, which in similar fashion was grasped, tented up with curved clamps and rectus muscles dissected off bluntly. The rectus muscle was in midline, peritoneum identified, tented up and entere d sharply with Metzenbaum scissors. The peritoneal incision was extended superiorly with good visual ization of the bladder. The bladder blade was inserted and the lower uterine segment incised in champion sverse fashion with a scalpel. The uterine incision was extended laterally. The bladder blade was r emoved and the infant's head delivered atraumatically. The nose and mouth were suctioned, cord clamp ed and cut. The was handed off to waiting buffer nickel. The placenta was then removed. The uterus was exteriorized and cleared of all clots and debris. The uterine incision was then repaired with 1-0 chromic in a running locked fashion. A second layer of same suture was used for imbrication obtaining excellent hemostasis. The uterus was returned to the abdomen. The gutters were cleared o f all clots. The patient rectus abdominis was reapproximated with 3-0 Vicryl in an interrupted fashi on. The fascia was reapproximated with 0 Vicryl in a running fashion. The subcutaneous tissue was r eapproximated with 2-0 plain gut in a running fashion. The subcutaneous skin was closed with absorba ble guille. The patient tolerated procedure well. All counts were correct. The patient was taken to recovery room in stable condition. Dictated By: ARNAUD TAPIA/KELSIE Conf#: [id number] DID#: [id number]
[2019-03-01 12:00] VITALS: BP 143/75; PULSE 64; RESP 20
[2019-03-01 12:30] VITALS: BP 138/83; PULSE 64; RESP 20
[2019-03-01 13:00] VITALS: BP 128/79; PULSE 66; RESP 16
[2019-03-01 14:00] VITALS: BP 128/72; PULSE 69; RESP 16
[2019-03-01 15:00] VITALS: BP 122/66; PULSE 66; RESP 16
[2019-03-01] MEDS: CEFAZOLIN 2 GM/50 ML (PMX) 50 ML IVPB SCH (16:39)
[2019-03-01 20:00] VITALS: BP 115/55; PULSE 69; RESP 18
[2019-03-02] VITALS: BP 118/61; PULSE 65; RESP 18
[2019-03-02] MEDS: CEFAZOLIN 2 GM/50 ML (PMX) 50 ML IVPB SCH ×2 (00:04→08:15)
--- NOTE | 2019-03-02 00:18 | OPPN ---
Date/Time of Note Date/Time of Note DATE: 03/02/19 TIME: 00:17 Anesthesia Follow up Anesthesia Follow up Last documented vital signs Vital Signs Date Temp Pulse Resp B/P (MAP) Pulse Ox O2 O2 Flow FiO2 Time Delivery Rate 03/01/19 98.5 66 16 122/66 95 Room Air 15:00 (84) Respiratory function: WNL Cardiovascular function: WNL Comments S: pt. is pod #1. min. bt pain. min. n/v. min. need for bt pain meds ie nsaids/opiates. ambulating. O: vss, afeb. A: min. bt. pain sec. to it MSO4. P: no complications. YOLIS AHUJA MD Mar 02, 2019 00:18
[2019-03-02 04:00] VITALS: BP 100/56; PULSE 66; RESP 17
[2019-03-02] MEDS: KETOROLAC 30 MG INJ IV PRN (04:15)
[2019-03-02 08:00] VITALS: BP 107/53; PULSE 61; RESP 16
[2019-03-02] MEDS: LANOLIN HPA 1 PKT TOP PRN (09:59)
[2019-03-02] MEDS: OXYCODONE/ACETAMINOPHEN (5/325) TAB PO PRN ×2 (11:35→15:19)
[2019-03-02] MEDS: IBUPROFEN 800 MG TAB PO SCH ×2 (13:58→22:09)
--- NOTE | 2019-03-02 14:40 | QN ---
Documentation Comment POD#1 is table afebrile tolerates diet No Vb +Flatus+Adequate urine Vs stable Gen NAD Abd soft NT ND Dressing to be removed Genitalia No blood at perineum --->Ambulation JEFE GAMING M.D. Mar 02, 2019 14:40
[2019-03-02 16:00] VITALS: BP 122/76; PULSE 54; RESP 18
[2019-03-02 20:15] VITALS: BP 122/69; PULSE 64; RESP 18
[2019-03-03] MEDS: OXYCODONE/ACETAMINOPHEN (5/325) TAB PO PRN ×4 (01:08→22:44)
[2019-03-03 03:49] VITALS: BP 112/72; PULSE 63; RESP 17
[2019-03-03] MEDS: IBUPROFEN 800 MG TAB PO SCH ×3 (05:34→22:02)
[2019-03-03 08:46] VITALS: BP 124/64; PULSE 66; RESP 66
[2019-03-03 16:29] VITALS: BP 131/68; PULSE 67; RESP 16
[2019-03-03 19:30] VITALS: BP 117/68; PULSE 67; RESP 19
--- NOTE | 2019-03-03 22:44 | PD.PPDC ---
GI PHYSICIAN Discharge Instruction Condition Syygw3Pk Patient Condition: Emnhx2j Good Diet Doutl7Px Diet: Wgjzg2i Resume Regular Diet Activity/Restrictions [id number] Activity: Fdioo8h Normal Activity May Shower Drvao9Nq Restrictions: Buhlb6o No Exercising No Lifting No Driving No Sexual Activity Nothing in the Vagina No [place] No Tampons, douche Follow-up Follow-up with Physician: 2, Week/Weeks Return to clinic for Lqdph3Kd REEFER ENGINEER Instructions: Mpjjm3y Fever greater than 101 Chills Worsening abdominal pain Excessive Vaginal Bleeding More than 2 pads per hour Unable to tolerate diet Ycyos4Gq OB Instructions: Snsfz4q Breast Tenderness Depression Blurried Vision Headache Pbihq1Fz Surgical Instructions: Idzcw6u Incisional Drainage Incisional Redness JESUS ARMENTA MD Mar 03, 2019 22:44
[2019-03-03] MEDS ORDERED: BISACODYL 10 MG SUPP PR ONE (23:30)
[2019-03-04 04:00] VITALS: BP 128/78; PULSE 63; RESP 19
[2019-03-04] MEDS: IBUPROFEN 800 MG TAB PO SCH (05:27)
[2019-03-04] MEDS: LANOLIN HPA 1 PKT TOP PRN (06:43)
--- NOTE | 2019-03-04 07:12 | DS ---
DATE OF ADMISSION: 03/01/2019 DATE OF DISCHARGE: 03/04/2019 PRIMARY DIAGNOSES: Intrauterine at 39 weeks gestational age in labor, previous x 1, desires elective repeat delivery, declined . PROCEDURE: Repeat low transverse delivery. CONDITION ON DISCHARGE: Stable. ACTIVITY: None per vagina, no lifting x6 weeks. DIET: Regular. MEDICATIONS ON DISCHARGE: Motrin 800 mg p.o. q 8 hours p.r.n. severe pain. DISCHARGE SUMMARY: underwent a repeat low transverse delivery on 03/01/2019. She had a viable female, 9 and 9 respectively at 1 and 5 minutes, weight 6 pounds 15 ounces. She had an uneventful postop day 1 and 2. She will be discharged on postop day 3. Her incision is clean , dry, and intact. She is ambulating, tolerating diet, positive flatulence, positive bowel. She tracy l follow up in the clinic in 2 weeks for /postop care. Dictated By: JESUS TAPIA/KELSIE Conf#: [id number] DID#: [id number]
[2019-03-04 08:15] VITALS: BP 133/91; RESP 18
[2019-03-04] MEDS ORDERED: DIPHTH/TET/ACEL PERTUSS (ADULT) 0.5 ML VIAL IM* ONE (09:00)
[2019-03-04] MEDS: OXYCODONE/ACETAMINOPHEN (5/325) TAB PO PRN (09:34)
--- NOTE | 2019-03-05 13:20 | DELSUM ---
Delivery Summary A-C Datetime Report Generated by CPN: 03/05/2019 13:19 DELIVERY PERSONNEL Avionics Safety Inspector: Nacho, Radha MATERNAL INFORMATION Delivery Anesthesia: Spinal Medications in Delivery: SEE ANESTHESIA RECORD Delivery QBL (ml): 500 Placenta Cultured: No Maternal Complications: None LABOR SUMMARY EDC: 03/04/2019 00:00 No. Babies in Womb: 1 Attempted: No Labor Anesthesia: None LABOR INFORMATION Reason for Induction: Not Applicable Group B Beta Strep: Negative Antibiotics # of Doses: 1 Steroids Given: None Reason Steroids Not Administered: Not Applicable MEMBRANES Membranes Rupture Method: Artificial Rupture of Membranes: 03/01/2019 08:51 Length of Rupture (hr): 0.02 Amniotic Fluid Color: Clear Amniotic Fluid Amount: Large Amniotic Fluid Odor: None STAGES OF LABOR Stage 3 hr: 0 Stage 3 min: 1 VAGINAL DELIVERY Episiotomy: None Laceration Extension: N/A Laceration Type: None CSECTION DELIVERY Primary Indication: Repeat Elective CSection Urgency: Elective CSection Incidence: Repeat Labor: No Labor Elective: Elective CSection Incision: Lower Uterine Transverse BABY A INFORMATION Delivery Date/Time: 03/01/2019 08:52 Method of Delivery: Born in Route : No : N/A Forceps: N/A Vacuum Extraction: N/A Shoulder Dystocia : No SHOULDER DYSTOCIA BABY A Infant Delivery Date/Time: 03/01/2019 08:52 PRESENTATION/POSITION BABY A Presentation: Cephalic Cephalic Presentation: Vertex Vertex Position: Left Occipital Anterior Breech Presentation: N/A PLACENTA INFORMATION BABY A Placenta Delivery Time : 03/01/2019 08:53 Placenta Method of Delivery: Manual Removal Placenta Status: Delivered SCORES BABY A Heart Rate 1 min: >100 bpm Resp Effort 1 min: Good Cry Reflex Irritability 1 min: Cough/Sneeze/Pulls Away Muscle Tone 1 min: Active Motion Color 1 min: Body [place], Extremit Blue Resuscitation Effort 1 min: Tactile Stimulation SCORE 1 MIN: 9 Heart Rate 5 min: >100 bpm Resp Effort 5 min: Good Cry Reflex Irritability 5 min: Cough/Sneeze/Pulls Away Muscle Tone 5 min: Active Motion Color 5 min: Body [place], Extremit Blue Resuscitation Effort 5 min: Tactile Stimulation SCORE 5 MIN: 9 INFORMATION BABY A Gestational Age at Delivery: 39.4 Gestational Status: Full Term- 39- 40.6 Weeks Outcome : Liveborn, with signs of life Infant Condition : Stable Sex: Female IDENTIFICATION/MEDS BABY A ID Band Number: [id number] ID Band Location: Right Leg; Left Arm Sensor Applied: Yes Sensor Number: [id number] Sensor Location : Cord Clamp Vitamin K Given : Not Given Erythromycin Given: Not Given WEIGHT/LENGTH BABY A Infant Birthweight (gm): 3160 Weight (lb): 6 Weight (oz): 15 Infant Length (in): 19.00 Length (cm): 48.26 CORD INFORMATION BABY A No. Cord Vessels: 3 Nuchal Cord : Around Neck x1, Loose Nuchal Cord- Other: 0 True Knot: 0 Cord Blood Taken: Yes Banking/Donate Info: NO Infant Suction: Mouth; Nose ASSESSMENT BABY A Complications: None Physical Findings at Delivery: Within Normal Limits Infant Respirations: Appears Normal Marketing Technologist/ALS Called : No Transferred To: Remains with Mother
== END 2019-03-04 12:50 | disposition home or self-care (01) | DRG 788 ==
LOC: L-D 05:21 → PP1 12:50
PROVIDERS: ADMIT Obstetrics & Gynecology; ATTEND Obstetrics & Gynecology
PROC: 10D00Z1 Extraction of Products of Conception, Low, Open Approach (ICD-10-PCS; principal; 2019-03-01 07:30)
DX: O34.211 Maternal care for low transverse scar from previous cesarean delivery (principal); Z3A.39 39 weeks gestation of pregnancy; Z37.0 Single live birth; Z23 Encounter for immunization
CPT/HCPCS: 85025; 85610; 85730; 86592; 86850; 86900; 86901; 87340; 90715; 99464; J0690; J1200; J1885; J2210; J2250; J2274; J2405; J2590; J2765; J7120

== ENCOUNTER 2019-03-28 12:16 | Emergency (ER) | payer MEDICAID ==
[~2019-03-28] VITALS: Wt 61.0 kg
[~2019-03-28 12:16] MED LIST changes: -FOLI0.4T2 PO
[2019-03-28 12:19] VITALS: BP 123/71; PULSE 78; RESP 18
--- NOTE | 2019-03-28 12:48 | ERD ---
ER Documentation Chief Complaint Chief Complaint C SECTION PAIN FROM A MONTH AGO HPI 34-year-old female, status post c/s 03/01/19, presents to the emergency department, for wound check, the patient is concerned about her incisional induration, but no reports of fever, no erythema, no tenderness, no discharge. The patient has an appointment with her doctor in 1 week. ROS All systems reviewed and are negative except as per history of present illness. Medications Home Meds Reported Medications Ferrous Sulfate* (Ferrous Sulfate*) 325 Mg Tabec, 325 MG PO DAILY, TAB 04/18/17 Calcium Carbonate* (Calcium Carbonate*) 600 MG Ca Tab, 600 MG PO, TAB 03/27/17 Multivit/Min/Fol Ac/Iron/Pren* ( S*) 1 Tab Tab, 1 TAB PO DAILY, TAB 03/27/17 Allergies Allergies: Coded Allergies: No Known Allergy (Unverified , 03/27/17) PMhx/Soc Medical and Surgical Hx: pt denies Medical Hx Hx Alcohol Use: No Hx Substance Use: No Hx Tobacco Use: No Smoking Status: Never smoker FmHx Family History: No diabetes, No coronary disease Physical Exam Vitals Vital Signs Date Temp Pulse Resp B/P (MAP) Pulse Ox O2 O2 Flow FiO2 Time Delivery Rate 03/28/19 97.9 78 18 123/71 99 12:19 (88) Physical Exam Const: No acute distress Head: Atraumatic Eyes: Normal Conjunctiva ENT: Normal External Ears, Nose and Mouth. Neck: Full range of motion. No meningismus. Resp: Clear to auscultation bilaterally Cardio: Regular rate and rhythm, no murmurs Abd: Soft, non tender, non distended. Normal bowel sounds. Low transverse surgical incision clean, dry and intact. Skin: No petechiae or rashes Back: No midline or flank tenderness Ext: No cyanosis, or edema Neur: Awake and alert Psych: Normal Mood and Affect Procedures/MDM Status post 6 weeks ago. No pain, no fever, no chills. Patient is stable, with adequate healing process, no evidence of infection or complications, okay to discharge home. The patient was instructed to follow up with the primary care provider in the next 48h. If symptoms persist, worsen or new symptoms develop, then patient should return to the ED immediately. Instructions explained and given directly by me to the patient with acknowledgment and demonstrated understanding. Disclaimer: Inadvertent spelling and grammatical errors are likely due to EHR/dictation software use and do not reflect on the overall quality of patient care. Also, please note that the electronic time recorded on this note does not necessarily reflect the actual time of the patient encounter. Departure Diagnosis: Primary Impression: Encounter for postoperative wound check Condition: Stable Additional Instructions: Thank you very much for allowing us to participate in your care. Your health and safety is our top priority at [facility]. The evaluation in the emergency department has been done to rule out an acute emergency. Chronic, [id number] conditions may have not been evaluated; therefore, you need to follow up with a primary care provider in the next 48h. If symptoms persist, worsen or new symptoms develop, then patient should return to the ED immediately. Call your primary care doctor TOMORROW for an appointment during the next 2-4 days and bring all the information provided. Have prescriptions filled and follow precisely the directions on the label. If the symptoms get worse and your provider is unavailable, return to the Emergency Department immediately. JODIE HI MD Mar 28, 2019 12:48
== END 2019-03-28 12:49 | disposition home or self-care (01) ==
LOC: E/R 12:16
DX: Z48.01 Encounter for change or removal of surgical wound dressing (principal)
CPT/HCPCS: 99281